=== PATIENT | female | born 1990 | race Caucasian/White ===

== ENCOUNTER 2018-06-04 20:04 | Emergency (ER) | payer OTHER ==
[~2018-06-04] VITALS: Ht 170.2 cm; Wt 62.1 kg
[2018-06-04 20:17] VITALS: Ht 170.2 cm; Wt 62.1 kg
[2018-06-04 21:29] VITALS: BP 123/65
== END 2018-06-04 21:29 | disposition home or self-care (01) ==
LOC: ED 20:04
DX: S63.501A Unspecified sprain of right wrist, initial encounter (principal); W18.39XA Other fall on same level, initial encounter; Y93.66 Activity, soccer; Y92.89 Other specified places as the place of occurrence of the external cause; Y99.8 Other external cause status
CPT/HCPCS: A4570